=== PATIENT | female | born 1955 | race Caucasian/White ===

== ENCOUNTER 2016-11-19 08:44 | Emergency (ER) | payer BC, OTHER ==
[~2016-11-19] VITALS: Ht 157.5 cm; Wt 102.0 kg
[~2016-11-19 08:44] MED LIST: CLON1TAB3 PO; METFTAB PO; MULT-506 PO; ZOLP6.2529 PO
[2016-11-19 08:51] VITALS: TEMP 36.4; Ht 157.5 cm; Wt 102.0 kg
[2016-11-19] MEDS ORDERED: CHOL1000 PO (09:00)
[2016-11-19] MEDS ORDERED: TURM1CAP4 PO (09:00)
[2016-11-19] MEDS ORDERED: NUTRCAP PO (09:00)
[2016-11-19] MEDS ORDERED: LIRA18IN SQ (09:00)
[2016-11-19] MEDS ORDERED: COEN1CAP7 (09:00)
--- NOTE | 2016-11-19 09:56 | DIAGNOSTIC IMAGING REPORT ---
LEFT KNEE 3 VIEWS CLINICAL HISTORY: Left knee pain status post trauma COMPARISON: None. DISCUSSION: There are faint calcifications in the region the lateral joint compartment. Chondrocalcinosis is favored over a subtle fracture. There is no significant joint effusion. There are mild osteoarthritic changes. IMPRESSION: 1. Faint chondrocalcinosis 2. No acute fractures identified 3. Mild osteoarthritic changes Electronically signed by: Mazin Norris M.D. 11/19/2016 9:55 AM Dictated Date/Time: 11/19/2016 9:53 AM
[2016-11-19] MEDS ORDERED: OXYCODONE HCL IR 5 MG TAB (IMMEDIATE RELEASE) PO STA (10:04)
--- NOTE | 2016-11-19 10:30 | EMERGENCY ROOM VISIT NOTE ---
History Report prepared by Karon: Erik Youssef Under the Supervision of: Dr. Ismael Gonzalez D.O. First contact with patient: 08:57 Chief Complaint: KNEEPAIN Stated Complaint: FELL, LT KNEE CAME OUT History of Present Illness The patient is a 60 year old female who presents to the Emergency Room with complaints of worsening left knee pain since last night. The pain is rated 2/10 in severity. The patient's knee gave out when she was walking down stairs yesterday. She did not sustain any injuries at that time. She did not hit her head or lose consciousness. The patient has had pain throughout her left leg for two weeks, including the ankle knee and hip. She denies any numbness or tingling. The patient had Cortisone injections in her left hip and knee last week with Dr. Cruz. The patient was told she could have meniscus tears in the left knee. She has a history of arthritis. Patient denies headache, change in vision, fevers, chest pain, shortness of breath, nausea, vomiting, diarrhea, pain with urination, and melena. Source of History: patient Onset: last night Position: knee (left) Symptom Intensity: 2/10 Timing: worsening Associated Symptoms: No LOC, No SOB, No chest pain, No diarrhea, No fevers, No headache, No melena, No nausea, No numbness, No urinary symptoms, No vomiting Review of Systems See HPI for pertinent positives & negatives. A total of 10 systems reviewed and were otherwise negative. Past Medical & Surgical Medical Problems: (1) Dislocation of fifth finger, interphalangeal joint, right, closed (2) Prediabetes Family History Diabetes mellitus FH: cancer FH: heart disease Hypertension Social History Smoking Status: Never Smoker Marital Status: Housing Status: lives with significant other Occupation Status: employed Current/Historical Medications Scheduled Cholecalciferol (Vitamin D3), 5,000 UNITS PO DAILY Coenzyme Q10 (Ubidecarenone) (Coq10), DAILY Liraglutide (Victoza), 18 MG SQ QAM Metformin Ext Rel (Glucophage Ext Rel), 500 MG PO QPM Multivitamin (Multivitamin), 1 TAB PO DAILY Nutritional Supplements (Homocysteine Support), 1-2 CAP PO DAILY Turmeric (Curcuma Longa) (Turmeric), 1 CAP PO DAILY Scheduled PRN Clonazepam (Klonopin), 1 MG PO HS PRN for Sleep Zolpidem Tartrate (Zolpidem Tartrate Er), 6.25 MG PO HS PRN for Sleep Allergies Coded Allergies: Sulfa Drugs (Verified Allergy, Unknown, HIVES, 11/19/16) Physical Exam Vital Signs Date Time Temp Pulse Resp B/P Pulse Ox O2 Delivery O2 Flow Rate FiO2 11/19/16 10:44 88 16 141/86 98 11/19/16 08:51 36.4 93 18 143/83 97 Room Air Physical Exam GENERAL: Sitting up in wheelchair, no acute distress, nontoxic. EYE EXAM: normal conjunctiva. OROPHARYNX: no exudate, no erythema, lips, buccal mucosa, and tongue normal and mucous membranes are moist LUNGS: Clear to auscultation. Normal chest wall mechanics HEART: no murmurs, S1 normal and S2 normal ABDOMEN: abdomen soft, non-tender, normo-active bowel sounds, no masses, no rebound or guarding. SKIN: no rashes and no bruising UPPER EXTREMITIES: upper extremities are grossly normal. LOWER EXTREMITIES: No pitting edema. Tender to palpation over the medial meniscus of the left knee, flexion extension of hip knee ankle intact, no obvious deformity, DP 2/4, sensation intact. NEURO EXAM: Normal sensorium. Medical Decision & Procedures ER Provider Diagnostic Interpretation: Xray results per the radiologist and my interpretation. LEFT KNEE 3 VIEWS CLINICAL HISTORY: Left knee pain status post trauma COMPARISON: None. DISCUSSION: There are faint calcifications in the region the lateral joint compartment. Chondrocalcinosis is favored over a subtle fracture. There is no significant joint effusion. There are mild osteoarthritic changes. IMPRESSION: 1. Faint chondrocalcinosis 2. No acute fractures identified 3. Mild osteoarthritic changes Electronically signed by: Mazin Norris M.D. 11/19/2016 9:55 AM Dictated Date/Time: 11/19/2016 9:53 AM Medications Administered Medications (Trade) Dose Ordered Sig/Brittany Route Start Time Stop Time Status Last Admin Dose Admin Oxycodone HCl (Roxicodone Immediate Rel Tab) 5 mg NOW STAT PO 11/19/16 10:04 11/19/16 10:05 DC 11/19/16 10:11 5 MG ED Course ED COURSE: Vital signs were reviewed and were normal. The patients medical record was reviewed The above diagnostic studies were performed and reviewed. ED treatments and interventions as stated above. 0903: The patient was evaluated in room B12b. A complete history and physical examination was performed. 1000: Upon reevaluation, the patient is doing well.I discussed my findings with the patient and she understands and agrees with the treatment plan. Based on the patients age, coexisting illnesses, exam and lab findings the decision to treat as an outpatient was made. The patient remained stable while under my care. The patient appeared well at the time of discharge. Medical Decision Etiologies such as fracture, dislocation, neurovascular compromise, compartment syndrome, soft tissue injury, as well as others were entertained. Patient is a 60-year-old female who presents the ER for a mechanical fall due to her left knee giving out. She currently following with orthopedics and has had recent injections of her left knee and hip. This occurred last night. She has been able to walk on it. No obvious deformity on exam. No weakness. X- ray show no acute fracture. She does have tenderness over the medial meniscus. Patient was updated at bedside per she is discharged follow-up with her with [facility]. Discussed with Pt concerning signs and symptoms to watch out for. Pt was instructed to follow up with their PCP and discussed with the patient their option to return to the ED at anytime for persistent or worsening symptoms. The appropriate anticipatory guidance and out-patient management, including indications for return to the emergency department, were explained at length to the patient and understood. Impression Primary Impression: Sprain of knee Scribe Attestation The scribe's documentation has been prepared under my direction and personally reviewed by me in its entirety. I confirm that the note above accurately reflects all work, treatment, procedures, and medical decision making performed by me. Departure Information Dispostion Home / Self-Care Referrals Jarod Shah M.D. (PCP) Forms HOME CARE DOCUMENTATION FORM, IMPORTANT VISIT INFORMATION Patient Instructions ED Sprain Knee, My [facility] Additional Instructions Please follow up with your orthopedic surgeon with in the next 48 hours. Any worsening of your symptoms, please return to the ED immediately. This includes fevers, redness of the joint, inability to walk, worsening pain, or any other concerning signs or symptoms from your standpoint. Please take Motrin or Tylenol as stated for pain. If her pain continues for 5-7 days following this incident you will need repeat x-rays. Problem Qualifiers Primary Impression: Sprain of knee Encounter type: initial encounter Involved ligament of knee: unspecified ligament Laterality: left Qualified Codes: S83.92XA - Sprain of unspecified site of left knee, initial encounter
[2016-11-19 10:44] VITALS: BP 141/86; PULSE 88; O2SAT 98
== END 2016-11-19 10:46 | disposition home or self-care (01) ==
LOC: C.EDB 08:45
DX: S83.92XA Sprain of unspecified site of left knee, initial encounter (principal); W10.9XXA Fall (on) (from) unspecified stairs and steps, initial encounter

== ENCOUNTER → 2016-11-25 | Outpatient (CLI) | payer BC, OTHER ==
[~2016-11-25] MED LIST changes: +CHOL1000 PO; +COEN1CAP7; +LIRA18IN SQ; +NUTRCAP PO; +TURM1CAP4 PO
--- NOTE | 2016-11-25 09:21 | DIAGNOSTIC IMAGING REPORT ---
LEFT KNEE MRI HISTORY: PAIN IN LEFT KNEE, LOOKING FOR MENISCUS TEAR COMPARISON STUDY: None. TECHNIQUE: Multiplanar multisequence MRI of the left knee was performed according to standard department protocol without the use of contrast. FINDINGS: Menisci: The lateral meniscus is intact. There is abnormal signal at the posterior medial meniscal root consistent with a tear. Increased signal within the body of the medial meniscus consistent with degeneration. This does not clearly extend to the articular surface to suggest a tear. Ligaments: The anterior and posterior cruciate ligaments are intact. The medial and lateral collateral ligaments are normal in appearance. Extensor mechanism: The quadriceps tendon and patellar ligament are intact. Articular cartilage and bone: No fracture or dislocation within the visualized osseous structures. Tiny marginal osteophytes at the medial compartment of the knee. Small cartilage fissure at the medial patellar facet. Mild cartilage thinning within the inferior aspect of the lateral patellar facet. There is also mild cartilage thinning within the medial femoral condyle. Joint effusion: None. Soft tissues: Subcentimeter popliteal cyst. There is also 1 cm ganglion cyst posterior to the distal PCL attachment. IMPRESSION: 1. Complex/complete tear through the posterior root of the medial meniscus. 2. Mild osteoarthritis within the knee. 3. Subcentimeter popliteal cyst. Electronically signed by: Bentley Frias M.D. 11/25/2016 9:19 AM Dictated Date/Time: 11/25/2016 9:13 AM
== END | disposition home or self-care (01) ==
LOC: C.MRIBC 08:06
PROVIDERS: ATTEND Orthopaedic Surgery
DX: S83.232A Complex tear of medial meniscus, current injury, left knee, initial encounter (principal); X58.XXXA Exposure to other specified factors, initial encounter; M17.9 Osteoarthritis of knee, unspecified; M71.22 Synovial cyst of popliteal space [Baker], left knee

== ENCOUNTER → 2017-02-24 | Outpatient (CLI) | payer BC, OTHER ==
--- NOTE | 2017-02-27 14:25 | MAMMOGRAPHY REPORT ---
BILATERAL DIGITAL SCREENING MAMMOGRAM TOMOSYNTHESIS WITH CAD: 02/24/2017 CLINICAL HISTORY: Routine screening. Patient has no complaints. TECHNIQUE: Breast tomosynthesis in addition to standard 2D mammography was performed. Current study was also evaluated with a Computer Aided Detection (CAD) system. COMPARISON: Comparison is made to exams dated: 03/03/2016 ultrasound, 03/03/2016 mammogram, 02/19/2016 mammogram, 02/13/2015 mammogram, 02/06/2014 mammogram, and 02/01/2013 mammogram - [facility]. BREAST COMPOSITION: The tissue of both breasts is heterogeneously dense, which may obscure small ma sses. FINDINGS: No suspicious masses, calcifications, or areas of architectural distortion are noted in e ither breast. There has been no significant interval change compared to prior exams. Scattered bilat eral benign-appearing calcifications are not significantly changed. Circumscribed benign-appearing 7 mm mass in the left upper outer quadrant posteriorly is not significantly changed and was shown to represent a benign cyst on the prior 2015 ultrasound exam. IMPRESSION: ACR BI-RADS CATEGORY 2: BENIGN There is no mammographic evidence of malignancy. A 1 year screening mammogram is recommended. The p atient will receive written notification of the results. Approximately 10% of breast cancers are not detected with mammography. A negative mammographic repor t should not delay biopsy if a clinically suggestive mass is present. Kari Castro M.D. /:02/24/2017 16:47:19 Online Communications Manager: Teresa NAGEL(Edith)(Jorge), [facility] letter sent: Normal 1/2 BI-RADS Code: ACR BI-RADS Category 2: Benign
== END | disposition home or self-care (01) ==
LOC: C.MAMM 16:26
PROVIDERS: ATTEND Obstetrics & Gynecology
DX: Z12.31 Encounter for screening mammogram for malignant neoplasm of breast (principal)

== ENCOUNTER → 2017-04-19 | Outpatient (CLI) | payer BC, OTHER ==
--- NOTE | 2017-04-19 15:34 | DIAGNOSTIC IMAGING REPORT ---
CHEST 2 VIEWS ROUTINE CLINICAL HISTORY: SHOULDER PAIN/ ABNORMAL SHOULDER X-RAY COMPARISON STUDY: No previous studies for comparison. FINDINGS: The bones soft tissues and hemidiaphragms are normal. The cardiomediastinal silhouette is normal. The lungs are clear. The pulmonary vasculature is normal. IMPRESSION: Negative chest. Electronically signed by: Marcos Beebe M.D. 04/19/2017 3:32 PM Dictated Date/Time: 04/19/2017 3:32 PM
== END | disposition home or self-care (01) ==
LOC: C.RADBC 14:48
PROVIDERS: ATTEND Orthopaedic Surgery
DX: M25.519 Pain in unspecified shoulder (principal)

== ENCOUNTER → 2017-09-27 | Outpatient (CLI) | payer BC, OTHER ==
[2017-09-27 09:28] LABS: BASO % 0.7 %; BASO ABS # 0.04 K/uL (0-0.2); COMPLETE YES; EOS % 4.9 %; HEMATOCRIT 37.9 % (37-47); IG% 0.2 %; LYMPH % 21.8 %; LYMPH ABS # 1.33 K/uL (1.2-3.4); MEAN CELL VOLUME 95.5 fL (80-100); MEAN CORPUSCULAR HGB CONC 33.5 g/dl (32-36); MEAN PLATELET VOLUME 10.5 fL (7.4-10.4); MONO % 9.7 %; NEUT % 62.7 %; PLATELET COUNT 209 K/uL (130-400); RED BLOOD COUNT 3.97 M/uL (4.2-5.4)
[2017-09-27 09:55] LABS: ESTIMATED AVERAGE GLUCOSE 117 mg/dl; HA1C FLAG Normal (Normal)
[2017-09-27 10:12] LABS: ALT/SGPT 44 U/L (12-78); AST/SGOT 18 U/L (15-37); BLOOD UREA NITROGEN 22 mg/dl (7-18); BUN/CREATININE RATIO 37.3 (10-20); CALCIUM 8.9 mg/dl (8.5-10.1); CARBON DIOXIDE 25 mmol/L (21-32); CHLORIDE 108 mmol/L (98-107); CHOLESTEROL 180 mg/dl (0-200); CREATININE 0.59 mg/dl (0.60-1.20); GLUCOSE 109 mg/dl (70-99); POTASSIUM 3.9 mmol/L (3.5-5.1); SODIUM 140 mmol/L (136-145); TRIGLYCERIDES 93 mg/dl (0-150); URIC ACID 6.8 mg/dl (2.6-7.2); VERY LOW DENSITY LIPOPROT CALC 19 mg/dl
[2017-09-27 10:21] LABS: ALB/GLOB RATIO 0.9 (0.9-2); ALKALINE PHOSPHATASE 69 U/L (45-117); CHOLESTEROL/HDL RATIO 2.9; HDL CHOLESTEROL 63 mg/dl; LDL CHOLESTEROL CALCULATED 98 mg/dl; TOTAL IRON BINDING CAPACITY 380 mcg/dl (250-450)
== END | disposition home or self-care (01) ==
LOC: C.LAB 07:19
PROVIDERS: ATTEND Family Medicine
DX: E88.81 Metabolic syndrome and other insulin resistance (principal); E55.9 Vitamin D deficiency, unspecified; D51.9 Vitamin B12 deficiency anemia, unspecified; E78.9 Disorder of lipoprotein metabolism, unspecified; R53.83 Other fatigue

== ENCOUNTER → 2017-10-04 | Outpatient (CLI) | payer BC, OTHER | END | disposition home or self-care (01) | LOC: C.PAPS 13:54 | PROVIDERS: ATTEND Obstetrics & Gynecology | DX: Z01.419 Encounter for gynecological examination (general) (routine) without abnormal findings (principal); Z78.0 Asymptomatic menopausal state ==

== ENCOUNTER → 2018-03-02 | Outpatient (CLI) | payer OTHER ==
--- NOTE | 2018-03-05 07:44 | MAMMOGRAPHY REPORT ---
BILATERAL DIGITAL SCREENING MAMMOGRAM TOMOSYNTHESIS WITH CAD: 03/02/2018 CLINICAL HISTORY: Routine screening. Patient has no complaints. TECHNIQUE: Breast tomosynthesis in addition to standard 2D mammography was performed. Current study was also evaluated with a Computer Aided Detection (CAD) system. COMPARISON: Comparison is made to exams dated: 02/24/2017 mammogram, 02/19/2016 mammogram, 02/13/2015 ma mmogram, 02/06/2014 mammogram, 02/01/2013 mammogram, and 01/14/2011 mammogram - [facility]. BREAST COMPOSITION: The tissue of both breasts is heterogeneously dense, which may obscure small mas ses. FINDINGS: No suspicious masses, calcifications, or areas of architectural distortion are noted in ei ther breast. There has been no significant interval change compared to prior exams. Scattered bilate ral benign-appearing calcifications are not significantly changed. Circumscribed benign-appearing 8 mm mass within the left upper outer quadrant is not significantly changed and was shown to represent a benign cyst on a prior ultrasound exam. IMPRESSION: ACR BI-RADS CATEGORY 2: BENIGN There is no mammographic evidence of malignancy. A 1 year screening mammogram is recommended. The pa tient will receive written notification of the results. Approximately 10% of breast cancers are not detected with mammography. A negative mammographic report should not delay biopsy if a clinically suggestive mass is present. Kari Castro M.D. /:03/02/2018 17:01:24 Facility Environmental Technician: Imelda SPEARS)(Jorge), [facility] letter sent: Normal 1/2 BI-RADS Code: ACR BI-RADS Category 2: Benign
== END | disposition home or self-care (01) ==
LOC: C.MAMM 16:19
PROVIDERS: ATTEND Family Medicine
DX: Z12.31 Encounter for screening mammogram for malignant neoplasm of breast (principal); R92.1 Mammographic calcification found on diagnostic imaging of breast; N60.02 Solitary cyst of left breast